=== PATIENT | male | born 1935 | race Caucasian/White ===

== ENCOUNTER 2021-09-09 21:29 | Inpatient (IN) | payer MEDICARE ==
[~2021-09-09] VITALS: Ht 177.8 cm; Wt 66.7 kg
--- NOTE | 2021-09-09 21:35 | NUR ---
[id number] C/O "BEING IN SPA TO LONG FELT WEAK" AT TRIAGE PT STATES HE FEELSOK. PATIENT ALERT AND ORIENTED X3. AMBULATORY WITH NON LABORED BREATHING, INSISTS HE GETS CHECKED. IN BED 07 AWAITING MD LIU.
--- NOTE | 2021-09-09 22:15 | NUR ---
BLOOD COLLECTED AND SENT TO LAB
[2021-09-09 22:18] LABS: BASOPHILS # (AUTO) 0.1 K/uL (0.0-0.2); BASOPHILS % (AUTO) 0.8 % (0.0-2.0); EOSINOPHILS % (AUTO) 5.6 % (0.0-6.0); HEMATOCRIT 39 % (39-51); HEMOGLOBIN 12.6 g/dL (13.5-17.5); LYMPHOCYTES # (AUTO) 0.4 K/uL (0.8-4.8); LYMPHOCYTES % (AUTO) 5.4 % (20.0-44.0); MEAN CORPUSCULAR HGB CONC 32 g/dl (31.0-36.0); MEAN CORPUSCULAR VOLUME 86 fL (80-96); MONOCYTES # (AUTO) 0.6 K/uL (0.1-1.30); MONOCYTES % (AUTO) 7.2 % (2.0-12.0); NEUTROPHILS # (AUTO) 6.7 K/uL (1.8-8.9); PLATELET COUNT (AUTO) 205 K/uL (150-450); RED BLOOD CELL COUNT(AUTO) 4.55 MIL/uL (4.5-6.0); WHITE BLOOD COUNT (AUTO) 8.2 K/uL (4.3-11.0)
--- NOTE | 2021-09-09 22:21 | NUR ---
EMT @ BEDSIDE FOR EKG
[2021-09-09 22:32] LABS: ALANINE AMINOTRANSFERASE 17 U/L (12-78); ALBUMIN 4.4 g/dL (3.4-5.0); ALCOHOL, BLOOD < 3 mg/dL (0-0); ALKALINE PHOSPHATASE 82 U/L (46-116); ASPARTATE AMINOTRANSFERASE 18 U/L (15-37); BILIRUBIN,DIRECT 0.4 mg/dL (0.0-0.2); BILIRUBIN,TOTAL 1.4 mg/dL (0.2-1.0); CALCIUM, SERUM 9.6 mg/dL (8.5-10.1); CARBON DIOXIDE 26 mmol/L (21-32); CHLORIDE 105 mmol/L (98-107); CREATININE 1.3 mg/dL (0.6-1.3); GLUCOSE 176 mg/dL (74-106); POTASSIUM 4.3 mmol/L (3.5-5.1); SODIUM SERUM 140 mmol/L (136-145); TOTAL PROTEIN, SERUM 7.1 g/dL (6.4-8.2); UREA NITROGEN, BLOOD 22 mg/dL (7-18)
[2021-09-09] MEDS ORDERED: LIDOCAINE 2% JEL UROJET 10 ML MM ONE (22:37)
[2021-09-09] MEDS ORDERED: IV NS 0.9% 1,000 ML IV ONE (23:00)
--- NOTE | 2021-09-09 23:07 | NUR ---
COVID SWAB COLLECTED SENT TO LAB
[2021-09-10] MEDS ORDERED: MAG HYDROX/AL HYDROX/SIMETH 30 ML UDC PO PRN (01:30)
[2021-09-10] MEDS ORDERED: IV NS 0.9% 1,000 ML IV ONE (01:30)
[2021-09-10] MEDS ORDERED: MAGNESIUM HYDROXIDE 30 ML UDC PO PRN (01:30)
[2021-09-10] MEDS ORDERED: Z GUARD REMEDY 4 OZ OINT TP PRN (01:30)
[2021-09-10] MEDS ORDERED: ONDANSETRON HCL/PF 4 MG/2 ML VIAL IVP PRN (01:30)
[2021-09-10] MEDS ORDERED: ACETAMINOPHEN 325 MG TABLET PO PRN (01:30)
[2021-09-10] MEDS ORDERED: ZOLPIDEM TARTRATE 5 MG TABLET PO PRN (01:30)
--- NOTE | 2021-09-10 02:12 | NUR ---
URINE COLLECTED, SENT TO LAB
--- NOTE | 2021-09-10 02:23 | NUR ---
ROOM 307-1
--- NOTE | 2021-09-10 02:28 | NUR ---
REPORT GIVEN TO KARIE RODRÍGUEZ
[2021-09-10 03:00] LABS: BILIRUBIN,URINE NEGATIVE (NEGATIVE); COLOR,URINE YELLOW (YELLOW); LEUKOCYTE ESTERASE ,URINE NEGATIVE (NEGATIVE); NITRITE, URINE NEGATIVE (NEGATIVE); PH,URINE 5.5 (5.0-8.0); PROTEIN,URINE NEGATIVE (NEGATIVE); UGLUCOSE NEGATIVE (NEGATIVE); UROBILINOGEN,URINE 0.2 EU/dL (0.2)
--- NOTE | 2021-09-10 03:03 | NUR ---
PATIENT TRANSFERRED, NO ACUTE DISTRESS NOTED.
[2021-09-10 03:10] VITALS: BP 145/83
--- NOTE | 2021-09-10 04:37 | NUR ---
ADMISSION NOTES PT ARRIVED VIA GURNEY @0310, ABLE TO AMBULATE WITH ASSISTANCE TO BED. AOx4, ABLE TO MAKE NEEDS KNOWN. ON RA AND TOLERATING WELL. NO SOB NOTED. NO S/SX OF RESPIRATORY DISTRESS NOTED. IV ACCESS IN LAC #20G RUNNING NS @ 75 ML/HR. SAFETY PRECAUTIONS IN PLACE: BED IN LOWEST, LOCKED POSITION, SIDERAILS UPx2 AND BRAKES ON. TABLE AND CALL LIGHT WITHIN REACH. WILL CONTINUE TO MONITOR.
--- NOTE | 2021-09-10 06:43 | NUR ---
RN CLOSING NOTES PT IN BED, ASLEEP, AWAKENS TO VERBAL STIMULI. AOx4, ABLE TO MAKE NEEDS KNOWN. ON RA AND TOLERATING WELL. NO SOB NOTED. NO S/SX OF RESPIRATORY DISTRESS NOTED. IV ACCESS IN LAC #20G RUNNING NS @ 75 ML/HR. ALL NEEDS MET. PT KEPT CLEAN AND DRY. SAFETY PRECAUTIONS IN PLACE: BED IN LOWEST, LOCKED POSITION, SIDERAILS UPx2 AND BRAKES ON. TABLE AND CALL LIGHT WITHIN REACH. WILL ENDORSE TO ONCOMING SHIFT FOR RUBI.
--- NOTE | 2021-09-10 07:30 | NUR ---
MS RN OPENING NOTES RECEIVED PATIENT ON BED AWAKE AND A/O X3-4. ON ROOM AIR TOLERATING WELL. NO SOB NOTED. NOT IN DISTRESS. WITH NO COMPLAINTS OF PAIN OR DISCOMFORT AT THIS TIME. WITH IV ACCESS AT LEFT AC G20 WITH IVF NS AT 75ML/HR INFUSING WELL. SAFETY MEASURES IN PLACED. CALL LIGHT WITHIN REACH. BED ON LOWEST LOCKED POSITION, SIDE RAILS UP X2. WILL CONTINUE TO MONITOR.
[2021-09-10 08:00] VITALS: BP 158/83
--- NOTE | 2021-09-10 13:55 | NUR ---
MS SLURRY CONTROL OPERATOR HELPER NOTES PATIENT WAS SEEN BY DR. MONTE AND ORDERED PATIENT FOR DISCHARGE. PATIENT IS FOR DISCHARGE TO HOME. DISCHARGE INSTRUCTION AND EDUCATION PROVIDED TO PATIENT AND EXPLAINED MEDICATIONS AND PRESCRIPTIONS. PATIENT VERBALIZED UNDERSTANDING. DISCHARGE FORM AND BELONGINGS LIST FORM SIGNED BY PATIENT. ALL BELONGINGS ACCOUNTED FOR. NAME WRIST BAND AND IV LINE REMOVED. PATIENT WAS ACCOMPANIED VIA WHEELCHAIR WITH HIS TO THE LOBBY AND LEFT IN STABLE CONDITION VIA PRIVATE CAR. MD AND CHARGE NURSE ARE AWARE OF THE DISCHARGE.
== END 2021-09-10 16:00 | disposition home or self-care (01) | DRG 923 ==
LOC: ER 22:08 → TELE 09-10 02:51 → MED 09-10 03:12
DX: T67.6XXA Heat fatigue, transient, initial encounter (principal); X30.XXXA Exposure to excessive natural heat, initial encounter; G89.29 Other chronic pain; Z20.822 Contact with and (suspected) exposure to COVID-19; E78.5 Hyperlipidemia, unspecified; E78.00 Pure hypercholesterolemia, unspecified; F03.90 Unspecified dementia, unspecified severity, without behavioral disturbance, psychotic disturbance, mood disturbance, and anxiety; E11.9 Type 2 diabetes mellitus without complications; I10 Essential (primary) hypertension; Y92.009 Unspecified place in unspecified non-institutional (private) residence as the place of occurrence of the external cause
CPT/HCPCS: 70450-TC; 71045-TC; 80048-TC; 80076-TC; 82962-TC; 84484-TC; 85025-TC; 87081-TC; 97116-TC; 97530-TC; C9803; G0378; G0480; J3490; J7030

== ENCOUNTER 2022-02-22 10:57 | Inpatient (IN) | payer MEDICARE ==
[~2022-02-22] VITALS: Ht 182.9 cm; Wt 64.4 kg
--- NOTE | 2022-02-22 11:10 | NUR ---
AT BED SIDE
--- NOTE | 2022-02-22 11:15 | NUR ---
BIB RA c/o weakness x 1 week. PLACED ON BED, AAOX4, BREATHING EVEN AND UNLABORED SATURATING AT 99%.
--- NOTE | 2022-02-22 11:27 | NUR ---
BLOODS DRAWN AND SENT TO LAB
[2022-02-22] MEDS ORDERED: IV NS 0.9% 1,000 ML BAG IV ONE (11:30)
[2022-02-22 11:50] LABS: BASOPHILS % (AUTO) 0.3 % (0.0-2.0); EOSINOPHILS % (AUTO) 1.8 % (0.0-6.0); HEMATOCRIT 31 % (39-51); HEMOGLOBIN 10.3 g/dL (13.5-17.5); LYMPHOCYTES # (AUTO) 0.5 K/uL (0.8-4.8); LYMPHOCYTES % (AUTO) 9.9 % (20.0-44.0); MEAN CORPUSCULAR HGB CONC 33 g/dl (31.0-36.0); MEAN CORPUSCULAR VOLUME 88 fL (80-96); MONOCYTES # (AUTO) 0.5 K/uL (0.1-1.30); MONOCYTES % (AUTO) 8.9 % (2.0-12.0); NEUTROPHILS # (AUTO) 4.1 K/uL (1.8-8.9); NEUTROPHILS % (AUTO) 79.1 % (43.0-81.0); PLATELET COUNT (AUTO) 166 K/uL (150-450); RED BLOOD CELL COUNT(AUTO) 3.54 MIL/uL (4.5-6.0); WHITE BLOOD COUNT (AUTO) 5.2 K/uL (4.3-11.0)
[2022-02-22 12:13] LABS: ALBUMIN 4.2 g/dL (3.4-5.0); BILIRUBIN,DIRECT 0.4 mg/dL (0.0-0.2); BILIRUBIN,TOTAL 1.3 mg/dL (0.2-1.0); CALCIUM, SERUM 9.3 mg/dL (8.5-10.1); CREATININE 1.1 mg/dL (0.6-1.3); POTASSIUM 4.4 mmol/L (3.5-5.1); TOTAL PROTEIN, SERUM 6.3 g/dL (6.4-8.2)
[2022-02-22 12:20] LABS: THYROID STIMULATING HORMONE 10.876 uIU/mL (0.358-3.74)
[2022-02-22] MEDS ORDERED: LEVO100T9 PO (14:20)
[2022-02-22] MEDS ORDERED: RIVA10TA PO (14:20)
[2022-02-22] MEDS ORDERED: METF-442 PO (14:20)
[2022-02-22] MEDS ORDERED: ATOR40TA PO (14:20)
[2022-02-22] MEDS ORDERED: ESCI10TA PO (14:20)
[2022-02-22] MEDS ORDERED: DONE10TA44 PO (14:25)
[2022-02-22] MEDS ORDERED: MEMA10TA56 PO (14:25)
[2022-02-22] MEDS ORDERED: Z GUARD REMEDY 4 OZ OINT TP PRN (15:00)
[2022-02-22] MEDS ORDERED: ONDANSETRON HCL/PF 4 MG/2 ML VIAL IVP PRN (15:00)
[2022-02-22] MEDS ORDERED: DEXTROSE 50%-WATER 50 ML DISP.SYRIN IV PRN (15:00)
[2022-02-22] MEDS ORDERED: ZOLPIDEM TARTRATE 5 MG TABLET PO PRN (15:00)
[2022-02-22] MEDS ORDERED: MAGNESIUM HYDROXIDE 30 ML UDC PO PRN (15:00)
[2022-02-22] MEDS ORDERED: MAG HYDROX/AL HYDROX/SIMETH 30 ML UDC PO PRN (15:00)
[2022-02-22] MEDS ORDERED: ACETAMINOPHEN 325 MG TABLET PO PRN (15:00)
[2022-02-22] MEDS: MEMANTINE HCL 5 MG TABLET PO SCH (17:00)
[2022-02-22] MEDS: DONEPEZIL 5 MG TABLET PO SCH (18:00)
[2022-02-22] MEDS: ATORVASTATIN 40 MG TABLET PO SCH (18:00)
--- NOTE | 2022-02-22 18:48 | NUR ---
swab for covid19 sent tolab
--- NOTE | 2022-02-22 21:54 | NUR ---
PT ACCIDENTALLY REMOVED HI IV LINE. A NEW IV LINE 20G STARTED ON R ARM, PATIENT WAS ASSISTED WITH DIAPER CHANGE AND WAS PROVIDED WITH NEW LINENS. PLACED ON A MONITOR W/ STABLE VS. WILL CONT TO MONITOR
[2022-02-22] MEDS ORDERED: MEMANTINE HCL 5 MG TABLET ONE (22:21)
[2022-02-22] MEDS ORDERED: DONEPEZIL 5 MG TABLET ONE (22:21)
[2022-02-22] MEDS ORDERED: ATORVASTATIN 40 MG TABLET ONE (22:21)
[2022-02-22] MEDS: BLOOD SUGAR DIAGNOSTIC 1 EACH STRIP VI SCH ×2 (22:22→22:31)
--- NOTE | 2022-02-22 22:22 | NUR ---
POC BG 81. NO INSULIN ADMIN PER INSULIN PROTOCOL.
[2022-02-22] MEDS ORDERED: RIVAROXABAN 10 MG TABLET ONE (23:08)
[2022-02-22] MEDS: RIVAROXABAN 10 MG TABLET PO SCH (23:20)
[2022-02-22] MEDS: IV NS 0.9% 1,000 ML IV PRN (23:51)
--- NOTE | 2022-02-23 01:44 | NUR ---
PT SLEEPING COMOFRTABLY BREATHING UNLABORED. CALL LIGHT WITHIN REACH. V/S WNL.
[2022-02-23 05:29] LABS: BASOPHILS % (AUTO) 0.2 % (0.0-2.0); EOSINOPHILS % (AUTO) 1.3 % (0.0-6.0); HEMATOCRIT 35 % (39-51); HEMOGLOBIN 11.5 g/dL (13.5-17.5); LYMPHOCYTES # (AUTO) 0.5 K/uL (0.8-4.8); MEAN CORPUSCULAR HGB CONC 33 g/dl (31.0-36.0); MEAN CORPUSCULAR VOLUME 89 fL (80-96); MONOCYTES # (AUTO) 0.6 K/uL (0.1-1.30); MONOCYTES % (AUTO) 7.9 % (2.0-12.0); NEUTROPHILS # (AUTO) 6.4 K/uL (1.8-8.9); NEUTROPHILS % (AUTO) 84.6 % (43.0-81.0); PLATELET COUNT (AUTO) 171 K/uL (150-450); RED BLOOD CELL COUNT(AUTO) 3.99 MIL/uL (4.5-6.0); WHITE BLOOD COUNT (AUTO) 7.6 K/uL (4.3-11.0)
[2022-02-23 05:42] LABS: CALCIUM, SERUM 8.9 mg/dL (8.5-10.1); CARBON DIOXIDE 29 mmol/L (21-32); CHLORIDE 98 mmol/L (98-107); CREATININE 0.9 mg/dL (0.6-1.3); GLUCOSE 87 mg/dL (74-106); MAGNESIUM 1.5 mg/dL (1.8-2.4); PHOSPHORUS 5.5 mg/dL (2.5-4.9); POTASSIUM 3.8 mmol/L (3.5-5.1); SODIUM SERUM 135 mmol/L (136-145); UREA NITROGEN, BLOOD 17 mg/dL (7-18)
[2022-02-23] MEDS ORDERED: LEVOTHYROXINE SODIUM 100 MCG TABLET PO SCH (07:30)
[2022-02-23] MEDS: ESCITALOPRAM OXALATE (10 MG) 10 MG TABLET PO SCH (09:00)
[2022-02-23] MEDS ORDERED: Magnesium 1GM/D5W 100ML PREMIX 100 ML IV SCH (11:00)
[2022-02-23] MEDS ORDERED: Magnesium 1GM/D5W 100ML PREMIX 200 ML IV ONE (11:42)
[2022-02-23] MEDS ORDERED: LEVOTHYROXINE SODIUM 100 MCG TABLET ONE (11:52)
[2022-02-23] MEDS ORDERED: LEVOTHYROXINE SODIUM 25 MCG TABLET ONE (11:52)
[2022-02-23] MEDS: LEVOTHYROXINE SODIUM 100 MCG TABLET PO SCH (11:53)
[2022-02-23] MEDS ORDERED: ESCITALOPRAM OXALATE (10 MG) 10 MG TABLET ONE (11:55)
[2022-02-23] MEDS ORDERED: MEMANTINE HCL 5 MG TABLET ONE (11:55)
[2022-02-23] MEDS ORDERED: Magnesium 1 GM/2 ML VIAL IV ONE (12:30)
--- NOTE | 2022-02-23 13:34 | NUR ---
GOING TO 101. ADMITTING AWARE
--- NOTE | 2022-02-23 14:22 | NUR ---
PT WAS GIVEN 2G MAGNESIUM ORDERED.
--- NOTE | 2022-02-23 14:23 | NUR ---
TRANSPORTED TO FLOOR IN STABLE CONDITION.
--- NOTE | 2022-02-23 14:30 | NUR ---
wireless telegrapher note patient is alert and oriented x2-3. patient is stable condition. iv patent, intact and flushing well. able to make needs known. all safety measures in place. call light within reach. bed locked at lowest position. side rails up x2.
[2022-02-23 16:00] VITALS: BP 173/86
[2022-02-23] MEDS: MEMANTINE HCL 5 MG TABLET PO SCH (17:00)
[2022-02-23] MEDS: RIVAROXABAN 10 MG TABLET PO SCH (18:00)
[2022-02-23] MEDS: DONEPEZIL 5 MG TABLET PO SCH (18:00)
[2022-02-23] MEDS: ATORVASTATIN 40 MG TABLET PO SCH (18:00)
--- NOTE | 2022-02-23 19:30 | NUR ---
RN NOTES RECEIVED REPORT FROM MORNING SHIFT. PATIENT IN BED A/O X1-2 WITH PERIODS OF CONFUSION. ON ROOM AIR SATING 96%. NO SOB NO DISTRESS NOTED AT THIS TIME. WITH R UA IV ACCESS PATENT FLUSHES WELL. PATIENT HAS A EPISODE OF GETTING OUT OF BED. EXPLAINED TO PATIENT THAT HE STILL WEAK AND HE COULD USE URINAL IF HE NEEDS TO USE THE BATHROOM. ALL SAFETY MEASURES IN PLACE. HOB ELEVATED. CALL LIGHT WITHIN REACH. WILL CLOSELY MONITOR THE PATIENT
--- NOTE | 2022-02-23 19:30 | NUR ---
television technician closing note patient is alert and oriented x3. patient is able to make needs known. patient kept clean and dry. iv patent and flushing well. all safety measures in place. call light within reach. bed alarm on bed locked at lowest position.
[2022-02-23 20:00] VITALS: BP 142/84
--- NOTE | 2022-02-23 20:55 | NUR ---
RN NOTES PATIENT HAS AN ORDER FOR MAGNESIUM 1 GM ORDERED IN THE MORNING SHIFT. INFORMED DR SANTOS THAT AM SHIFT MISSED THE [address] SANTOS ORDERED TO HELD 1 GM DOSE AND REPEAT MAGNESIUM LEVEL IN AM.
--- NOTE | 2022-02-23 21:00 | NUR ---
RN NOTES STARTED A IVF NS@ 75ML/HR TOLERATING WELL
[2022-02-23] MEDS: IV NS 0.9% 1,000 ML IV PRN (21:01)
[2022-02-23] MEDS: BLOOD SUGAR DIAGNOSTIC 1 EACH STRIP VI SCH (21:22)
[2022-02-23] MEDS: *INSULIN REGULAR(HUMULIN R)HUM 100 UNIT/ML VIAL SQ PRN (22:50)
[2022-02-24 04:00] VITALS: BP 155/81
[2022-02-24 06:35] LABS: CALCIUM, SERUM 8.7 mg/dL (8.5-10.1); CREATININE 1.1 mg/dL (0.6-1.3); MAGNESIUM 1.9 mg/dL (1.8-2.4); POTASSIUM 3.9 mmol/L (3.5-5.1)
--- NOTE | 2022-02-24 06:50 | NUR ---
RN NOTES PATIENT REMAINS STABLE. PATIENT WITH EPISODE OF CONFUSION AND AGITATION. SITTER AT BEDSIDE AT ALL TIMES PATIENT TRYING TO GET OUT OF BED. WITH IV ACCESS PATENT ON IVF NS@75ML/HR. NO SOB NO DISTRESS AT THIS TIME. WILL MONITOR THE PATIENT . ENDORSED TO MORNING SHIFT FOR RUBI
--- NOTE | 2022-02-24 07:20 | NUR ---
WATER SYSTEMS ENGINEER OPENING NOTE PATIENT IS ASLEEP.PATIENT IS EASILY AROUSABLE. PATIENT IS ALERT AND ORIENTED X3. PATIENT IS MED SURG STATUS. PATIENT HAS RIGHT AC IV GUAGE. IV PATENT AND FLUSHING WELL. ALL SAFETY MEASURES IN PLACE.CALL LIGHT WITHIN REACH. BED LOCKED AT LOWEST POSITION. BED ALARM ON. SITTER BY BEDSIDE. BEDSIDE TABLE NEXT TO PATIENT
[2022-02-24] MEDS: BLOOD SUGAR DIAGNOSTIC 1 EACH STRIP VI SCH ×4 (07:40→21:49)
[2022-02-24 08:00] VITALS: BP 136/74
[2022-02-24] MEDS: LEVOTHYROXINE SODIUM 100 MCG TABLET PO SCH (08:13)
[2022-02-24] MEDS: ESCITALOPRAM OXALATE (10 MG) 10 MG TABLET PO SCH (08:13)
[2022-02-24] MEDS: MEMANTINE HCL 5 MG TABLET PO SCH ×2 (08:14→17:58)
[2022-02-24] MEDS ORDERED: LEVO100T PO (12:06)
[2022-02-24] MEDS: IV NS 0.9% 1,000 ML IV PRN (13:50)
[2022-02-24] MEDS: INSULIN REGULAR, HUMAN 100 UNIT/ML 3 ML VIAL SQ PRN (13:51)
[2022-02-24 16:00] VITALS: BP 126/68
--- NOTE | 2022-02-24 17:00 | NUR ---
PATIENT DAUGHTER AT BEDSIDE. ALSO UPDATED PATIENT CONDITION TO DAUGHTER. AUTOMOTIVE PARTS SPECIALIST SPOKE WITH DAUGHTER REGARDING DISCHARGE PLANNING
[2022-02-24] MEDS: DONEPEZIL 5 MG TABLET PO SCH (17:58)
[2022-02-24] MEDS: ATORVASTATIN 40 MG TABLET PO SCH (18:05)
[2022-02-24] MEDS: RIVAROXABAN 10 MG TABLET PO SCH (18:06)
--- NOTE | 2022-02-24 19:30 | NUR ---
RELIEF WORKER CLOSING NOTE PATIENT IS AWAKE, ALERT AND ORIENTED X2-3. PATIENT IS IN BED. PATIENT IS ALERT AND ORIENTED X3.PATIENT HAS RIGHT AC IV GAUGE. IV PATENT AND FLUSHING WELL. ALL NEEDS MET. KEPT CLEAN AND DRY. PATIENT IS ON ROOM AIR TOLERATING ABOVE 98%. ALL SAFETY MEASURES IN PLACE.CALL LIGHT WITHIN REACH. BED LOCKED AT LOWEST POSITION. BED ALARM ON. BEDSIDE TABLE NEXT TO PATIENT
[2022-02-24 20:00] VITALS: BP 135/65
[2022-02-24] MEDS: *INSULIN REGULAR(HUMULIN R)HUM 100 UNIT/ML VIAL SQ PRN (21:50)
[2022-02-25] MEDS: IV NS 0.9% 1,000 ML IV PRN ×2 (05:24→19:42)
[2022-02-25 06:00] VITALS: BP 127/74
[2022-02-25] MEDS: BLOOD SUGAR DIAGNOSTIC 1 EACH STRIP VI SCH ×4 (07:51→23:23)
[2022-02-25] MEDS: LEVOTHYROXINE SODIUM 100 MCG TABLET PO SCH (08:23)
[2022-02-25] MEDS: MEMANTINE HCL 5 MG TABLET PO SCH ×2 (08:24→17:12)
[2022-02-25] MEDS: ESCITALOPRAM OXALATE (10 MG) 10 MG TABLET PO SCH (08:24)
--- NOTE | 2022-02-25 10:17 | NUR ---
pending discharge cm aware,
--- NOTE | 2022-02-25 11:32 | NUR ---
casework manager spoke with daughter,family appealed the discharge.
[2022-02-25] MEDS: INSULIN REGULAR, HUMAN 100 UNIT/ML 3 ML VIAL SQ PRN (12:42)
[2022-02-25 16:00] VITALS: BP 135/72
[2022-02-25] MEDS: ATORVASTATIN 40 MG TABLET PO SCH (17:12)
[2022-02-25] MEDS: RIVAROXABAN 10 MG TABLET PO SCH (17:12)
[2022-02-25] MEDS: DONEPEZIL 5 MG TABLET PO SCH (17:13)
[2022-02-25 20:00] VITALS: BP 144/77
[2022-02-25] MEDS: *INSULIN REGULAR(HUMULIN R)HUM 100 UNIT/ML VIAL SQ PRN (23:25)
[2022-02-26 04:00] VITALS: BP 131/72
--- NOTE | 2022-02-26 07:10 | NUR ---
SOFTBALL CORE MOLDER OPENING NOTES: RN NOTES RECEIVED PATIENT IN BED A/O X2-3 WITH PERIODS OF CONFUSION . ON ROOM AIR SATING 96%. NO SOB NO DISTRESS NOTED AT THIS TIME. WITH R UA IV ACCESS PATENT FLUSHES WELL. ALL SAFETY MEASURES IN PLACE. HOB ELEVATED. CALL LIGHT WITHIN REACH. WILL CLOSELY MONITOR THE PATIENT
[2022-02-26 08:00] VITALS: BP 132/72
[2022-02-26] MEDS: LEVOTHYROXINE SODIUM 100 MCG TABLET PO SCH (08:20)
[2022-02-26] MEDS: BLOOD SUGAR DIAGNOSTIC 1 EACH STRIP VI SCH ×4 (08:33→22:18)
[2022-02-26] MEDS: MEMANTINE HCL 5 MG TABLET PO SCH ×2 (09:38→17:22)
[2022-02-26] MEDS: ESCITALOPRAM OXALATE (10 MG) 10 MG TABLET PO SCH (09:38)
[2022-02-26] MEDS: INSULIN REGULAR, HUMAN 100 UNIT/ML 3 ML VIAL SQ PRN ×2 (12:38→22:22)
[2022-02-26] MEDS: IV NS 0.9% 1,000 ML IV PRN (15:42)
[2022-02-26 16:00] VITALS: BP 132/71
[2022-02-26] MEDS: DONEPEZIL 5 MG TABLET PO SCH (17:22)
[2022-02-26] MEDS: RIVAROXABAN 10 MG TABLET PO SCH (17:23)
[2022-02-26] MEDS: ATORVASTATIN 40 MG TABLET PO SCH (17:23)
--- NOTE | 2022-02-26 19:30 | NUR ---
MS RN OPENING NOTE RECEIVED PATIENT AWAKE IN BED, A/O X3. IV ACCESS RAC, RUNNING NS 75ML/HR. ABLE TO MAKE NEEDS KNOWN. NO PAIN NOTED AT THIS TIME. ALL SAFETY MEASURES IN PLACE. CALL LIGHT WITHIN REACH. BED LOCKED AT LOWEST POSITION. SIDE RAILS UPX2.BED ALARM ON. WILL CONTINUE TO MONITOR.
--- NOTE | 2022-02-26 19:40 | NUR ---
PIT HOIST OPERATOR CLOSING NOTE PATIENT IS AWAKE, ALERT AND ORIENTED X2-3. PATIENT IS IN BED. PATIENT HAS RIGHT AC IV GAUGE. IV PATENT AND FLUSHING WELL. ALL NEEDS MET. KEPT CLEAN AND DRY. PATIENT IS ON ROOM AIR TOLERATING ABOVE 98%. ALL SAFETY MEASURES IN PLACE.CALL LIGHT WITHIN REACH. BED LOCKED AT LOWEST POSITION. BED ALARM ON
--- NOTE | 2022-02-26 20:00 | NUR ---
MED SURGE KARIE OPEN NOTE: AWAKE, ALERT TO NAME AND TIME. REORIENTED TO PLACE AND SITUATION. UNLABORED BREATHING AT ROOM AIR. O2 SAT AT 96 %. MOIST ORAL MUCOSA. HOB ELEVATED AT 30 DEGREE ANGLE. ON IVF NS AT 75 ML/HR ON RIGHT UPPER ARM PERIPHERAL IV20G. NO S/S OF COMPLICATIONS. FALL PRECAUTIONS MAINTAINED. BED IS LOCKED, IN LOW POSITION, EXIT ALARM ON, BILATERAL HALF SIDE RAILS UP X2. CALL LIGHT IN REACH. Addendum: 02/28/22 at 0008 by DEYA DUMONT RN 02/27/22: 1999 OPEN NOTE.
[2022-02-27 02:00] VITALS: BP 140/69
[2022-02-27 04:00] VITALS: BP 144/74
[2022-02-27] MEDS: IV NS 0.9% 1,000 ML IV PRN ×2 (06:02→22:36)
--- NOTE | 2022-02-27 06:48 | NUR ---
MS RN CLOSING NOTE PATIENT AWAKE IN BED, A/O X3. CONFUSED SOMETIMES. IV ACCESS RAC, RUNNING NS 75ML/HR. ABLE TO MAKE NEEDS KNOWN. NO PAIN NOTED AT THIS TIME. ALL DUE MEDS GIVEN. ALL SAFETY MEASURES IN PLACE. CALL LIGHT WITHIN REACH. BED LOCKED AT LOWEST POSITION. SIDE RAILS UPX2.BED ALARM ON. WILL ENDORSE TO MORNING SHIFT.
--- NOTE | 2022-02-27 07:00 | NUR ---
RN OPENING NOTE RECEIVED PATIENT AWAKE IN BED, A/O X3. IV ACCESS RAC, RUNNING NS 75ML/HR. ABLE TO MAKE NEEDS KNOWN. NO PAIN NOTED AT THIS TIME. ALL SAFETY MEASURES IN PLACE. CALL LIGHT WITHIN REACH. BED LOCKED AT LOWEST POSITION. SIDE RAILS UPX2.BED ALARM ON. WILL CONTINUE TO MONITOR THROUGHOUT SHIFT
[2022-02-27] MEDS: BLOOD SUGAR DIAGNOSTIC 1 EACH STRIP VI SCH ×4 (07:56→22:37)
[2022-02-27] MEDS: LEVOTHYROXINE SODIUM 100 MCG TABLET PO SCH (07:57)
[2022-02-27 08:00] VITALS: BP 169/85
[2022-02-27] MEDS: ESCITALOPRAM OXALATE (10 MG) 10 MG TABLET PO SCH (10:03)
[2022-02-27] MEDS: MEMANTINE HCL 5 MG TABLET PO SCH ×2 (10:03→17:10)
[2022-02-27] MEDS: INSULIN REGULAR, HUMAN 100 UNIT/ML 3 ML VIAL SQ PRN (14:27)
[2022-02-27 16:00] VITALS: BP 140/89
[2022-02-27] MEDS: GLUCERNA SHAKE 237 ML CAN PO SCH (17:10)
[2022-02-27] MEDS: ATORVASTATIN 40 MG TABLET PO SCH (17:11)
[2022-02-27] MEDS: DONEPEZIL 5 MG TABLET PO SCH (17:13)
[2022-02-27] MEDS: RIVAROXABAN 10 MG TABLET PO SCH (17:13)
--- NOTE | 2022-02-27 19:40 | NUR ---
RN CLOSING NOTE PATIENT IN BED, A/O X3. IV ACCESS RAC, RUNNING NS 75ML/HR. ABLE TO MAKE NEEDS KNOWN. BREATHING ON ROOM AIR AT 97%, NO SOB NOTED. NO PAIN NOTED AT THIS TIME. ALL SAFETY MEASURES IN PLACE. CALL LIGHT WITHIN REACH. BED LOCKED AT LOWEST POSITION. SIDE RAILS UPX2. BED ALARM ON. WILL CONTINUE TO MONITOR THROUGHOUT SHIFT
[2022-02-27 20:00] VITALS: BP 137/80
--- NOTE | 2022-02-27 20:00 | NUR ---
MED SURGE RN OPEN NOTE: AWAKE, ALERT TO NAME AND TIME. REORIENTED TO PLACE AND SITUATION. UNLABORED BREATHING AT ROOM AIR. O2 SAT AT 96 %. MOIST ORAL MUCOSA. HOB ELEVATED AT 30 DEGREE ANGLE. ON IVF NS AT 75 ML/HR ON RIGHT UPPER ARM PERIPHERAL IV20G. NO S/S OF COMPLICATIONS. FALL PRECAUTIONS MAINTAINED. BED IS LOCKED, IN LOW POSITION, EXIT ALARM ON, BILATERAL HALF SIDE RAILS UP X2. CALL LIGHT IN REACH.
[2022-02-27] MEDS: *INSULIN REGULAR(HUMULIN R)HUM 100 UNIT/ML VIAL SQ PRN (22:38)
[2022-02-28 04:00] VITALS: BP 142/90
--- NOTE | 2022-02-28 06:50 | NUR ---
MED SURGE RN CLOSING NOTE: AWAKE, ALERT TO NAME AND TIME. REORIENTED TO PLACE AND SITUATION. UNLABORED BREATHING AT ROOM AIR. O2 SAT AT 97 %. MOIST ORAL MUCOSA. HOB ELEVATED AT 30 DEGREE ANGLE. ON IVF NS AT 75 ML/HR ON RIGHT UPPER ARM PERIPHERAL IV20G. NO S/S OF COMPLICATIONS. FALL PRECAUTIONS MAINTAINED. BED IS LOCKED, IN LOW POSITION, EXIT ALARM ON, BILATERAL HALF SIDE RAILS UP X2. CALL LIGHT IN REACH.
--- NOTE | 2022-02-28 07:30 | NUR ---
RN OPENING NOTE PATIENT IS IN BED, AWAKE, ALERT AND ORIENTED X 3. ON ROOM AIR, WITH OXYGEN SATURATION AT 97%. DENIES PAIN, BREATHING UNLABORED AND NOT IN ANY FORM OF DISTRESS. WITH RIGHT UPPER ARM IV INFUSING WITH NS AT 75 ML/HR. ALL HOSPITAL SAFETY PRECAUTIONS IN PLACE. BED IS LOCKED IN LOWEST POSITION, 3 SIDE RAILS UP, CALL LIGHT WITHIN REACH. WILL CONTINUE TO MONITOR THROUGHOUT SHIFT.
[2022-02-28] MEDS: BLOOD SUGAR DIAGNOSTIC 1 EACH STRIP VI SCH ×2 (07:52→11:40)
[2022-02-28] MEDS: ESCITALOPRAM OXALATE (10 MG) 10 MG TABLET PO SCH (08:38)
[2022-02-28] MEDS: GLUCERNA SHAKE 237 ML CAN PO SCH (08:38)
[2022-02-28] MEDS: MEMANTINE HCL 5 MG TABLET PO SCH (08:38)
[2022-02-28] MEDS: LEVOTHYROXINE SODIUM 100 MCG TABLET PO SCH (08:45)
[2022-02-28] MEDS: INSULIN REGULAR, HUMAN 100 UNIT/ML 3 ML VIAL SQ PRN (12:11)
--- NOTE | 2022-02-28 14:00 | NUR ---
RN CLOSING NOTE PATIENT IS DISCHARGED TO HOME VIA PERSONAL CAR, IN STABLE CONDITION. ALL FORMS PROCESSED AND SIGNED, DISCHARGE PACKET GIVEN. IV LINE DISCONTINUED AND SITE IS COVERED WITH DRY DRESSING. SKIN ISSUES WHERE PHOTOGRAPHED AND DOCUMENTED. DISCHARGE VITAL SIGNS: HR 64, BP 123/70, O2 SATURATION AT 95%, RR 17.
== END 2022-02-28 13:56 | disposition home health service (06) | DRG 640 ==
LOC: ER 11:00 → TRANSITION 22:07 → MEDSG1 02-23 13:52
PROVIDERS: ADMIT Nurse Practitioner Acute Care; ATTEND Nurse Practitioner Acute Care
DX: R62.7 Adult failure to thrive (principal); G93.41 Metabolic encephalopathy; I48.91 Unspecified atrial fibrillation; E78.5 Hyperlipidemia, unspecified; F03.90 Unspecified dementia, unspecified severity, without behavioral disturbance, psychotic disturbance, mood disturbance, and anxiety; E11.9 Type 2 diabetes mellitus without complications; Z85.9 Personal history of malignant neoplasm, unspecified; Z79.899 Other long term (current) drug therapy; Z79.01 Long term (current) use of anticoagulants; Z79.84 Long term (current) use of oral hypoglycemic drugs; Z91.81 History of falling; I10 Essential (primary) hypertension; E03.9 Hypothyroidism, unspecified; Z95.2 Presence of prosthetic heart valve
CPT/HCPCS: 36415; 71045-TC; 80048-TC; 80076-TC; 82140-TC; 82962-TC; 83735-TC; 83880; 84100-TC; 84439-TC; 84443-TC; 84484-TC; 85025-TC; 87081-TC; 92526; 92611-TC; 97116-TC; 97530-TC; C9803; G0378; J1815; J2405; J3475; J7030; J7050